=== PATIENT | male | born 1970 ===

== ENCOUNTER 2020-05-29 12:06 | Outpatient (REF) | payer OTHER, SELFPAY ==
[2020-05-30 07:17] LABS: SARS COV2 PCR INHOUSE NEGATIVE (Negative)
== END 2020-05-29 12:07 | disposition home or self-care (01) ==
LOC: HO.LAB 12:06
PROVIDERS: Visit Provider Internal Medicine
DX: Z20.822 Contact with and (suspected) exposure to COVID-19 (principal)
CPT/HCPCS: C9803; U0003